=== PATIENT | female | born 1975 | race Hispanic/Latino ===

== ENCOUNTER 2024-10-25 13:46 | Emergency (ER) | payer OTHER ==
[~2024-10-25] VITALS: Ht 157.5 cm; Wt 65.3 kg
[~2024-10-25 13:46] MED LIST: CLON0.5T23 PO; HYDR-3830 PO
[2024-10-25 13:49] VITALS: TEMP 98.2
[2024-10-25 14:22] LABS: APPEARANCE,URINE CLEAR (CLEAR); GLUCOSE, URINE (UA) NEGATIVE (NEGATIVE); LEUKOCYTE ESTERASE ,URINE NEGATIVE Leu/uL (NEGATIVE); NITRATE,URINE NEGATIVE (NEGATIVE); OCCULT BLOOD,URINE NEGATIVE (NEGATIVE)
[2024-10-25 14:22] LABS: IMMATURE GRANULOCYTE ABSOLUTE 0.08 K/uL (0-1); NUCLEATED RED BLOOD CELLS 0.0 % (0.0-0.19); PLATELET COUNT (AUTO) 395 K/uL (130-400); RED BLOOD CELL COUNT(AUTO) 5.36 MIL/uL (4.00-5.50); RED CELL DISTRIBUTION WIDTH 13.2 % (11.0-15.5); WHITE BLOOD COUNT (AUTO) 15.3 K/uL (4.8-10.8)
[2024-10-25 14:23] LABS: ADD UA MICROSCOPIC NO
[2024-10-25 14:30] LABS: CREATININE 0.8 mg/dL (0.5-1.0); GLOMERULAR FILTR. RATE CALC 89.0 mL/min (>90); GLUCOSE,RANDOM 100.0 mg/dL (70-105); SODIUM SERUM 137.0 mmol/L (136-145); UREA NITROGEN, BLOOD 8.0 mg/dL (7-18)
[2024-10-25] MEDS: LACTATED RINGERS 1000ML 1,000 ML IV ONE (14:44)
[2024-10-25 14:45] LABS: BAND NEUTROPHILS % (MANUAL) 4 % (0-2); EOSINOPHILS % (MANUAL) 2 % (1-6); LYMPHOCYTES % (MANUAL) 6 % (22-44); MAN.DIFF COMMENT-IMPRESSION MANUAL DIFFERENTIAL; MONOCYTES % (MANUAL) 5 % (2-9); REACTIVE LYMPHOCYTES 23 % (0-0); SEGMENTED NEUTROPHILS % 60 % (40-70)
[2024-10-25 16:39] LABS: AMPHET/METH SCREEN,URINE NEGATIVE (NEGATIVE); BARBITURATE SCREEN, URINE NEGATIVE (NEGATIVE); CANNABINOID SCREEN,URINE NEGATIVE (NEGATIVE); COCAINE SCREEN,URINE NEGATIVE (NEGATIVE)
[2024-10-25] MEDS ORDERED: PANT40TA55 PO (16:55)
--- NOTE | 2024-10-25 16:57 | ERN ---
General Chief Complaint: Palpitations Stated Complaint: PALPITATIONS Time Seen by MD: 13:49 Source: patient History of Present Illness Initial Comments This is a 49-year-old female coming in complaining of anxiousness. Per patient she felt palpitations for a moment a improved on her own. Patient states he is currently taking antibiotics prescribed by PCP for ongoing treatment of a UTI. Allergies: Coded Allergies: sunflower seed (Unverified Allergy, Unknown, ITCHING, 10/15/24) Home Meds Reported Medications Hydroxyzine HCl (Hydroxyzine HCl) 10 Mg Tablet, 5 MG PO BID, TAB 10/15/24 Clonazepam (Clonazepam) 0.5 Mg Tab.rapdis, 1 TAB PO TID for 30 Days, #90 TAB 0 Refills 10/15/24 Past Medical History Past Medical History: Anxiety Past Surgical History: Hysterectomy, ROS Dictation CONSTITUTIONAL: No chills, no fever, no weakness, no diaphoresis, no malaise. HEAD/FACE: No signs of trauma. EENT: No eye pain, no blurred vision, no tearing, no double vision, no ear pain, no ear discharge, no nose pain, no nasal congestion, no throat pain, no throat swelling, no mouth pain. RESPIRATORY: No cough, no orthopnea, no SOB, no stridor, no wheezing. CARDIOVASCULAR: No chest pain, no edema, no palpitations, no syncope. GASTROINTESTINAL/ABDOMINAL: No abdominal pain, no constipation, no diarrhea, no nausea, no vomiting. GENITOURINARY: No abnormal discharge, no dysuria, no frequent urination, no hematuria. No complaints of pain in the genitals. MUSCULOSKELETAL: No back pain, no gout, no joint pain, no joint swelling, no muscle pain, no muscle stiffness, no neck pain. INTEGUMENTARY: No change in color, no change in hair/nails, no dryness, no lesion, no lumps, no rash. NEUROLOGICAL/PSYCH: No anxiety, not depressed, no emotional problem, no headache, no numbness, no pre-existing deficit, no history of seizures, no tremors, no weakness. HEMATOLOGIC/LYMPHATIC: Not anemic, no history of blood clots, no apparent bleeding, no bruising, glands not swollen. All Systems Negative, Except as Noted. Physical Exam Physical Exam Dictation VITAL SIGNS: Reviewed. GENERAL APPEARANCE: Alert, oriented x3, no acute distress, obese. HEAD AND FACE: Non-traumatic. EYES: PERRL, pink conjunctivas, eyelid no trauma, anterior chamber clear. EARS: Pinnas intact and no signs of trauma or erythema. Ear canals clear and no discharge. TMs no erythema. NOSE: No discharge, no bleeding. OROPHARYNX: Mouth normal, teeth no caries, tongue pink. Pharynx clear, no erythema. Tonsils no exudates, no abscesses noted. Mucous membrane moist. NECK: Supple, non-tender, no thyromegaly, no masses, no JVD, no bruits. BREAST: Deferred. CHEST: No tenderness, no crepitus, no paradoxical movement, no retractions. LUNGS: Clear, well-ventilated, symmetric, no rales, no wheezing, no rhonchi, no stridor, good breath sounds bilaterally. HEART: Regular rate, regular rhythm, no murmur, no gallops. VASCULAR: No peripheral edema. ABDOMEN: Soft, positive bowel sounds, nondistended, no guarding, nontender, no rebound, no masses no hepatomegaly, no splenomegaly, no Ahn's sign, no hernias. RECTAL: Deferred. GENITAL: Deferred. NEUROLOGICAL: Normal speech, gross motor function intact, gross sensory function intact. MUSCULOSKELETAL: Neck nontender, full range of motion, back nontender, full range of motion. EXTREMITIES: Nontender, full range of motion. SKIN: Color pink, dry, no turgor, no rash, no lacerations, no abrasions, no contusions. LYMPHATICS: Deferred. Results Laboratory and Microbiology Lab and Micro Result Laboratory Tests Test 10/25/24 14:00 10/25/24 14:04 Urine Color YELLOW (YELLOW) Urine Appearance CLEAR (CLEAR) Urine pH 6.0 (5.0-8.0) Urine Specific [place] 1.018 (1.001-1.031) Urine Protein NEGATIVE mg/dL (NEGATIVE) Urine Glucose (UA) NEGATIVE mg/dL (NEGATIVE) Urine Ketones NEGATIVE mg/dL (NEGATIVE) Urine Occult Blood NEGATIVE (NEGATIVE) Urine Nitrate NEGATIVE (NEGATIVE) Urine Bilirubin NEGATIVE mg/dL (NEGATIVE) Urine Urobilinogen 0.2 mg/dL (0.2-1.0) Urine Leukocyte Esterase NEGATIVE Frankie/uL Urine Opiates Screen POSITIVE (NEGATIVE) H Urine Barbiturates Screen NEGATIVE (NEGATIVE) Urine Phencyclidine Screen NEGATIVE (NEGATIVE) Urine Amphetamines Screen NEGATIVE (NEGATIVE) Urine Benzodiazepines Screen NEGATIVE (NEGATIVE) Urine Cocaine Screen NEGATIVE (NEGATIVE) Urine Marijuana (THC) Screen NEGATIVE (NEGATIVE) White Blood Count 15.3 K/uL (4.8-10.8) H Red Blood Count 5.36 MIL/uL (4.00-5.50) Hemoglobin 15.8 g/dL (12.0-16.0) Hematocrit 47.0 % (36-48) Mean Corpuscular Volume 87.7 fL (79-99) Mean Corpuscular Hemoglobin 29.5 pg (27.0-33.0) Mean Corpuscular Hemoglobin Concent 33.6 g/dL (32.0-36.0) Red Cell Distribution Width 13.2 % (11.0-15.5) Platelet Count 395 K/uL (130-400) Mean Platelet Volume 9.3 fL (7.5-10.5) Immature Granulocyte % (Auto) 0.5 % (0-1) Neutrophils (%) (Auto) 64.7 % (40.0-77.0) Lymphocytes (%) (Auto) 26.8 % (21.0-51.0) Monocytes (%) (Auto) 6.3 % (3.0-13.0) Eosinophils (%) (Auto) 1.4 % (0.0-8.0) Basophils (%) (Auto) 0.3 % (0.0-5.0) Neutrophils # (Auto) 9.9 K/uL (1.8-7.7) H Lymphocytes # (Auto) 4.1 K/uL (1.0-4.8) Monocytes # (Auto) 1.0 K/uL (0.1-1.0) Eosinophils # (Auto) 0.21 K/uL (0.00-0.70) Basophils # (Auto) 0.05 K/uL (0.00-0.20) Absolute Immature Granulocyte (auto 0.08 K/uL (0-1) Segmented Neutrophils % 60 % (40-70) Band Neutrophils % 4 % (0-2) H Lymphocytes % (Manual) 6 % (22-44) L Monocytes % (Manual) 5 % (2-9) Eosinophils % (Manual) 2 % (1-6) Nucleated Red Blood Cells 0.0 % (0.0-0.19) Differential Comment MANUAL DIFFERENTIAL Reactive Lymphocytes 23 % (0-0) H White Cell Morphology Comment Platelet Morphology Comment Red Blood Cell Morphology MICROCYTIC 1+ Sodium Level 137 mmol/L (136-145) Potassium Level 4.1 mmol/L (3.5-5.1) Chloride Level 102 mmol/L (101-111) Carbon Dioxide Level 25 mmol/L (21-32) Blood Urea Nitrogen 8 mg/dL (7-18) Creatinine 0.8 mg/dL (0.5-1.0) Glomerular Filtration Rate Calc 89 mL/min (>90) Random Glucose 100 mg/dL (70-105) Total Calcium 9.5 mg/dL (8.5-10.1) Magnesium Level 2.00 mg/dL (1.80-2.40) Troponin I High Sensitivity 5 ng/L (4-50) Labs Reviewed?: Yes EKG/XRAY/US/CT/MRI EKG Comment 10/25/2024 time 2:44 p.m. Ventricular rate 65 Sinus rhythm [place] [address] wave elevation or depression X-RAY Comment Chest x-ray-NAD MDM MDM: Differential diagnosis: Palpitations, anxiety, gastritis, Rationale: Tests considered and ordered secondary to shared decision making include: Previous outside records reviewed: Old ER visits. Risk of complication and/or morbidity or mortality of patient management: None Medications-Per medication reconciliation Need for hospitalization: Patient does not meet criteria for hospitalization. Patient is a 49-year-old female coming in due to palpitations. Per patient she took her medications believes this caused palpitations. Cardiac workup negative for acute findings. Throughout ER visit patient has been stable laboratory workup did disclose mildly elevated white blood cell count but patient is currently on antibiotics prescribed by PCP for the same reason. I advised her to continue taking antibiotics and follow up with PCP as indicated in the past. ED Course Orders Procedure Category Date Status Time Cbc With Differential LAB 10/25/24 In Process 13:58 Chest 1vw RAD 10/25/24 Taken 13:58 12 Lead Ekg Tracing- EKG 10/25/24 Logged Technical 13:58 Lactated Ringers PHA 10/25/24 Complete 1000ml (Lactated 14:00 Magnesium LAB 10/25/24 Complete 13:58 Troponin I High LAB 10/25/24 Complete Sensitivity 13:58 Urinalysis Profile LAB 10/25/24 Complete 13:58 Basic Metabolic Panel LAB 10/25/24 Complete 13:58 Manual Differential LAB 10/25/24 In Process 14:04 Drug Screen Urine LAB 10/25/24 Complete 14:30 Current Medications Medications (Trade) Dose Ordered Sig/Adrienne Route PRN Reason Start Time Stop Time Status Last Admin Dose Admin Lactated Ringer's 1,000 ml @ 0 mls/hr ONCE ONCE IV 10/25/24 14:00 10/25/24 14:01 DC 10/25/24 14:44 Vital Signs Date Time Temp Pulse Resp B/P (MAP) Pulse Ox O2 Delivery O2 Flow Rate FiO2 10/25/24 16:23 61 17 133/69 96 Room Air* 0 21 10/25/24 13:49 98.2 72 16 156/77 98 Room Air 0 DX & DISP Disposition: Discharge Departure Impression: Primary Impression: UTI (urinary tract infection) Additional Impression: Gastritis Condition: Stable Scripts Pantoprazole Sodium (Protonix) 40 Mg Ectab 1 TAB PO DAILY for 30 Days, #30 TAB 0 Refills Prov: RIA AGUERO MD 10/25/24 Additional Instructions: You have been reviewed in the emergency department at [facility] after presenting with chest pain. After considering your history, your risk factors, your EKG and your blood test troponins, have been found to be at very low risk less than (1 in 100) of having a major adverse cardiac event (like heart attack) in the near future. In the " low risk" group, the risks of doing further tests and treatment as the inpatient outweighs the benefits. In many patients in the low risk group for the test of any sort or unnecessary, however he should discuss this further with his general practitioner who will understand the medical and personal backgrounds better. Because we have never declared you" no risk" we would suggest. 1 returning for medical review if you have further episodes of chest pain/arm pain or other concerning symptoms like dizziness, collapse, palpitations or shortness of breath. 2. Following up with your local doctor who will consider the need for further testing and will also ensure that any modifiable risk factors you may have for heart disease are optimally managed. Patient will be discharged in stable condition at the moment discharge patient states , no chest pain Referrals: TEDDY SQUIRES JR., MD (PCP) Time of Disposition: 16:53 RIA AGUERO MD Oct 25, 2024 16:57
[2024-10-25 18:16] VITALS: BP 133/69; PULSE 58; RESP 17; O2SAT 95
--- NOTE | 2024-10-25 18:53 | EKG ---
[facility] Test Date: 2024-10-25 Test Time: 14:44:00 Pat Name: ZACHARIAH GONZALEZ Department: ED Room: Gender: F Box Maker Wood: [id number] : 1975 Requested By: RIA AGUERO Order Number: [id number] Reading MD: Tomeka Johnson Measurements Intervals [place] Rate: 65 P: 78 IA: 141 QRS: 46 QRSD: 86 T: 12 QT: 429 QTc: 445 Interpretive Statements Sinus rhythm No previous ECG available for comparison Electronically Signed On 10-27-2024 15:28:09 CDT by Tomeka Johnson Please click the below link to view image of tracing.
--- NOTE | 2024-10-27 16:39 | HMCIMG ---
EXAM: CR Chest, 1 View. CLINICAL HISTORY: palpitations COMPARISON: None provided. FINDINGS: LUNGS: There is no mass, infiltrate, or acute pulmonary abnormality. PLEURAL SPACES: No pleural effusion or pneumothorax. MEDIASTINUM: Cardiac size and mediastinal contours within normal limits. BONES: No acute osseous abnormality. IMPRESSION: No acute cardiopulmonary pathology is evident. /[place]
== END 2024-10-25 18:46 | disposition home or self-care (01) ==
LOC: EDH 13:46
DX: N39.0 Urinary tract infection, site not specified (principal); K29.70 Gastritis, unspecified, without bleeding; F41.9 Anxiety disorder, unspecified; Z79.899 Other long term (current) drug therapy; Z90.710 Acquired absence of both cervix and uterus
CPT/HCPCS: 99285; 96360; 71045; 83735; 84484; 80048; 80305; 85025; 36415; 93005; 81003; J7120